=== PATIENT | female | born 2000 | race Caucasian/White ===

== ENCOUNTER → 2020-01-06 17:00 | Outpatient (BNVA) | payer BC, SELFPAY | PROVIDERS: Family Provider Nurse Practitioner Family; Visit Provider Family Medicine | DX: J30.2 Other seasonal allergic rhinitis; J02.9 Acute pharyngitis, unspecified | CPT/HCPCS: 87071; 87880 ==

== ENCOUNTER → 2020-07-12 09:55 | Outpatient (BNVA) | payer BC, SELFPAY | PROVIDERS: Family Provider Nurse Practitioner Family; Visit Provider Nurse Practitioner Family | DX: Z20.828 Contact with and (suspected) exposure to other viral communicable diseases (principal); J06.9 Acute upper respiratory infection, unspecified | CPT/HCPCS: 87071; 87400; 87635; 87880 ==

== ENCOUNTER → 2021-04-04 10:31 | Outpatient (BNVA) | payer OTHER, SELFPAY | PROVIDERS: Family Provider Nurse Practitioner Family; Visit Provider Nurse Practitioner Family | DX: J06.9 Acute upper respiratory infection, unspecified (principal); J30.2 Other seasonal allergic rhinitis; Z20.828 Contact with and (suspected) exposure to other viral communicable diseases; Z20.822 Contact with and (suspected) exposure to COVID-19 | CPT/HCPCS: 87071; 87400; 87635; 87880 ==

== ENCOUNTER 2023-11-19 17:55 | Emergency (ER) | payer SELFPAY ==
[2023-11-19 18:03] VITALS: BP 148/87; PULSE 103; RESP 16; TEMP 36.8; O2SAT 100
--- NOTE | 2023-11-19 18:14 | ED_ITS ---
HPI - Female Genitourinary 2 General: Chief complaint: Urogenital-Female Stated complaint: cramping, pelvic pressure, pt is 7 weeks preg Time Seen by Provider: 11/19/23 18:02 Source: patient Mode of arrival: ambulatory History of Present Illness: 23-year-old female who is roughly 7 to 8 weeks states over the last 2 days she been having some lower abdominal cramping states that cramping has been diffuse in nature and is worse when she urinates denies any fevers denies any vaginal discharge denies any vaginal bleeding. Rates her pain a 2 out of 10 currently. Associated symptoms: Reports abdominal pain; Deny headache(s) or nausea Review of Systems 2 Const: Denies: fever(s), chills, body aches or change in appetite ENMT: Denies: throat pain or dental pain Card: Denies: chest pain Resp: Denies: dyspnea GI: Reports: abdominal pain; Denies: nausea, vomiting or diarrhea Musc: Denies: neck pain or back pain Skin/Breast: Denies: rash Neuro: Denies: headache(s) PFSH ED 2 PFSH: Social History Smoking and tobacco/nicotine status: never used tobacco/nicotine Alcohol intake: never Substance/Drug Use: never Physical Exam 2 Const: COMMON NORMALS: no acute distress, patient oriented x3 and healthy appearing HENMT: COMMON NORMALS: normocephalic and atraumatic HEAD & SCALP: n ormocephalic and atraumatic Eye: COMMON NORMALS: Equal, round and reactive pupils present and EOMs intact bilaterally PUPIL: Yes Equal, round and reactive pupils present Neck/C-Spine: COMMON NORMALS: full ROM Chest: COMMONS NORMALS: normal inspection of the chest Resp: COMMON NORMALS: normal respiratory effort Cardio: COMMON NORMALS: regular rate RATE: regular rate GI: COMMON NORMALS: Normal to inspection, nondistended, normoactive bowel sounds present, Soft to palpation, non-tender and no masses PALPATION: Yes Soft to palpation Extremity: COMMON NORMALS: normal to inspection and full ROM Neuro: COMMON NORMALS: patient oriented x3, moves all extremities and no focal motor deficits Psych: COMMON NORMALS: mental status grossly normal, Normal thought process present and cooperative THOUGHT PROCESS: Normal thought process present Skin: COMMON NORMALS: no rashes or lesions noted and no wounds GENERAL SKIN EXAM: no rashes or lesions noted Course 2 Vital Signs: Vital signs: Vital Signs Temperature 98.2 F 11/19/23 18:03 Pulse Rate 88 11/19/23 19:21 Respiratory Rate 16 11/19/23 18:29 Blood Pressure 126/67 11/19/23 19:21 Pulse Oximetry 100 11/19/23 19:21 Oxygen Delivery Me thod Room Air 11/19/23 19:21 MDM - Female Medical Decision Making Patient presents here with abdominal pain in . I did a bedside ultrasound that did show an IUP heart rate 146 is consistent with dates her other blood work is normal abdominal exam is benign no signs of acute surgical abdomen we will place her on Reglan she is to follow-up with OB return if worsening. Medical Records I reviewed the patient's medical records. Lab Data I reviewed the patient's lab results. 11/19/23 18:11 Laboratory Results WBC 9.32 10^3/uL (3.29-11.43) 11/19/23 18:11 RBC 4.83 10^6/uL (3.85-5.65) 11/19/23 18:11 Hgb 12.90 g/dL (11.27-16.99) 11/19/23 18:11 Hct 39.2 % (36-47) 11/19/23 18:11 MCV 81.2 fl (85-98) L 11/19/23 18:11 MCH 26.7 pg (27-33) L 11/19/23 18:11 MCHC 32.9 g/dL (30-55) 11/19/23 18:11 RDW 13.9 % (12.1-15.1) 11/19/23 18:11 Plt Count 288 10^3/cmm (157-399) 11/19/23 18:11 MPV 10.2 fL (7.4-10.4) 11/19/23 18:11 Neut % (Auto) 66.3 % 11/19/23 18:11 Lymph % (Auto) 23.0 % 11/19/23 18:11 Anderson % (Auto) 6.3 % 11/19/23 18:11 Eos % (Auto) 3.1 % 11/19/23 18:11 Baso % (Auto) 0.9 % 11/19/23 18:11 Neut # (Auto) 6.18 10^3/uL (1.8-7.7) 11/19/23 18:11 Lymph # (Auto) 2.1 10^3/uL (0.8-4.8) 11/19/23 18:11 Anderson # (Auto) 0.6 10^3/uL (0.2-0.9) 11/19/23 18:11 Eos # (Auto) 0.3 10^3/uL (0.0-0.8) 11/19/23 18:11 Baso # (Auto) 0.1 10^3/uL (0.0-0.1) 11/19/23 18:11 Nucleated RBC % (auto) 0 % 11/19/23 18:11 Nucleated RBCs # 0.0 /100WBC 11/19/23 18:11 Ser , Semi-Qnt 14620.00 mIU/mL 11/19/23 18:11 Urine Color Yellow (Yellow) 11/19/23 18:11 Urine Appearance Clear (CLEAR) 11/19/23 18:11 Urine pH 5 (5-7) 11/19/23 18:11 Ur Specific [place] 1.020 (1.005-1.030) 11/19/23 18:11 Urine Protein Neg (Negative) 11/19/23 18:11 Urine Glucose (UA) Norm (Normal) 11/19/23 18:11 Urine Ketones Negative (Negative) 11/19/23 18:11 Urine Blood Neg (Negative) 11/19/23 18:11 Urine Nitrate Negative (Negative) 11/19/23 18:11 Urine Bilirubin Neg (Negative) 11/19/23 18:11 Urine Urobilinogen Norm mg/dL (Negative) 11/19/23 18:11 Ur Leukocyte Esterase Negative (Negative) 11/19/23 18:11 No radiology studies performed this visit Discharge Plan Discharge Patient Disposition: Home Clinical Impression: Abdominal pain in Condition: Stable Prescriptions: New metoclopramide HCl [Reglan] 10 mg tablet 10 mg PO Q6H PRN (Reason: nausea and vomiting) Qty: 20 0RF Discharge Orders: Discharge ED (Routine); Ordered 11/19/23 Ordered By: Korby Olegario Referrals: [place], [facility] M[facility] DISCLOSURE ACT SPECIALIST [Primary Care Provider] - Discharge Diet: Advance as tolerated Discharge Activity: Resume usual activity Patient Instructions: Abdominal Pain (ED), Abdominal Pain in (ED) Coding Level of Care Code ED School Services Officer for Bright Yanes
[2023-11-19] MEDS: sodium chloride 0.9% 1,000 ML 999 ML IV (18:21)
[2023-11-19] MEDS: diphenhydrAMINE 50 mg/mL SDV 1mL IVP (18:22)
[2023-11-19] MEDS: metoclopramide 5 mg/mL SDV 2 mL 10 MG IVP (18:22)
[2023-11-19 18:27] LABS: Basophils # 0.1 10^3/uL (0.0-0.1); Basophils % 0.9 %; Eosinophils # 0.3 10^3/uL (0.0-0.8); Eosinophils % 3.1 %; Hematocrit 39.2 % (36-47); Lymphocytes # 2.1 10^3/uL (0.8-4.8); Mean Corpuscular HGB Conc 32.9 g/dL (30-55); Mean Corpuscular Hemoglobin 26.7 pg (27-33); Mean Corpuscular Volume 81.2 fl (85-98); Mean Platelet Volume 10.2 fL (7.4-10.4); Monocytes # 0.6 10^3/uL (0.2-0.9); Monocytes % 6.3 %; Neutrophils # 6.18 10^3/uL (1.8-7.7); Neutrophils % 66.3 %; Nucleated Red Blood Cells % 0 %; Platelet Count 288 10^3/cmm (157-399); Red Blood Count 4.83 10^6/uL (3.85-5.65); Red Cell Distribution Width 13.9 % (12.1-15.1); White Blood Count 9.32 10^3/uL (3.29-11.43)
[2023-11-19 18:29] VITALS: PULSE 100; RESP 16; O2SAT 98
[2023-11-19 19:21] VITALS: BP 126/67; PULSE 88; O2SAT 100
[2023-11-19 19:28] LABS: Add Urine Microscopic? NO; Charge for UA Resulting for Rev
[2023-11-19 19:36] LABS: Bilirubin Urine Neg (Negative); Blood Urine Neg (Negative); Glucose Urine UA Norm (Normal); Ketones Urine Negative (Negative); Leukocyte Esterase Urine Negative (Negative); Nitrate Urine Negative (Negative); Protein Urine Neg (Negative); Urine Appearance Clear (CLEAR); Urine Color Yellow (Yellow); Urobilinogen Urine Norm (Negative); pH Urine 5 (5-7)
[2023-11-19 19:54] VITALS: BP 122/67; PULSE 81; O2SAT 100
== END 2023-11-19 19:54 | disposition home or self-care (01) ==
PROVIDERS: Emergency Provider Emergency Medicine; PCP Nurse Practitioner Family
DX: O26.891 Other specified pregnancy related conditions, first trimester (principal); R10.30 Lower abdominal pain, unspecified; Z3A.01 Less than 8 weeks gestation of pregnancy
CPT/HCPCS: 81003; 84702; 85025; 96374; 96375; 99284; J1200; J2765; J7030

== ENCOUNTER → 2024-01-08 08:05 | Outpatient (BNVA) | payer MEDICAID, SELFPAY | PROVIDERS: PCP Nurse Practitioner Family; Visit Provider Nurse Practitioner Women's Health | DX: Z34.90 Encounter for supervision of normal pregnancy, unspecified, unspecified trimester (principal) | CPT/HCPCS: 80307; 81000; 84443; 85025; 86592; 86762; 86803; 86850; 86900; 87086; 87340; 87491; 87591; 87806 ==

== ENCOUNTER → 2024-01-09 10:19 | Outpatient (BNVA) | payer MEDICAID, SELFPAY | PROVIDERS: PCP Nurse Practitioner Family; Visit Provider Nurse Practitioner Women's Health | DX: Z34.90 Encounter for supervision of normal pregnancy, unspecified, unspecified trimester (principal) | CPT/HCPCS: 76815 ==

== ENCOUNTER → 2024-01-20 07:40 | Outpatient (BNVA) | payer MEDICAID, SELFPAY | PROVIDERS: PCP Nurse Practitioner Family; Visit Provider Obstetrics & Gynecology | DX: Z34.90 Encounter for supervision of normal pregnancy, unspecified, unspecified trimester (principal); Z01.419 Encounter for gynecological examination (general) (routine) without abnormal findings | CPT/HCPCS: 84315; 87624 ==

== ENCOUNTER 2024-01-25 22:23 | Emergency (ER) | payer MEDICAID, SELFPAY ==
[2024-01-25 22:31] VITALS: BP 148/91; PULSE 93; RESP 17; TEMP 37.1; O2SAT 95; BMI 32.1
[2024-01-25 23:26] VITALS: BP 140/79; PULSE 87; O2SAT 99
[2024-01-25 23:45] VITALS: BP 120/79
[2024-01-25 23:57] LABS: Add Urine Microscopic? YES; Bilirubin Urine Neg (Negative); Blood Urine Neg (Negative); Glucose Urine UA Norm (Normal); Ketones Urine 1+ (Negative); Leukocyte Esterase Urine Negative (Negative); Nitrate Urine Negative (Negative); Protein Urine Neg (Negative); Urine Appearance Cloudy (CLEAR); Urine Color Yellow (Yellow); Urobilinogen Urine 1 mg/dL (Negative); pH Urine 6.5 (5-7)
[2024-01-25 23:58] LABS: Amorphous Sediment Urine 1+ /hpf; Bacteria Urine 2+ /hpf; Mucus Urine 2+ /hpf; RBC Urine 0-4 /hpf (0-2); Squamous Epithelial Cell Urine 0-4 /hpf (0-5); WBC Urine 0-4 /hpf (0-5)
[2024-01-26] MEDS: clindamycin 150 mg Capsule 900 MG PO (00:44)
[2024-01-26 00:46] VITALS: BP 127/75; PULSE 88; O2SAT 97
[2024-01-26 00:47] VITALS: BP 127/75; PULSE 88; O2SAT 97
--- NOTE | 2024-01-26 01:05 | ED_ITS ---
HPI - Dizziness General: Chief Complaint: Dizziness Stated Complaint: High bp Time Seen by Provider: 01/25/24 23:34 History of Present Illness: HPI Narrative: 23-year-old female who is at 18 weeks. She presents with dizziness, with some intermittent facial tingling and tingling to bilateral hands since . This is her third day of symptoms. She notes that her symptoms are much improved today compared to yesterday and the day before. She has had a headache as well which is now resolved. On Saturday she started Flagyl for bacterial vaginosis, which she believes is the cause. Her blood pressure was elevated evidently in obstetrics, which was concerning to them. She was sent here for evaluation regarding this. Associated symptoms: Reports headache(s); Denies chest pain, chills, nausea, palpitations or vomiting Associated neuro symptoms: Deny confusion Review of Systems Const: Denies: fever(s), chills or body aches Eyes: Denies: change in vision Card: Denies: chest pain or palpitations Resp: Denies: dyspnea, productive cough, non-productive cough or wheezing GI: Denies: abdominal pain, nausea, vomiting, diarrhea or hematochezia : Denies: difficulty voiding Skin/Breast: Reports: rash Neuro: Reports: headache(s), sensory changes and dizziness; Denies: weakness in extremities or confusion PFS ED PFSH: Social History Smoking and tobacco/nicotine status: never used tobacco/nicotine Alcohol intake: never Substance/Drug Use: never Physical Exam Const: COMMON NORMALS: no acute distress GENERAL APPEARANCE: cooperative; not ill appearing and not frail appearing HENMT: COMMON NORMALS: normocephalic, atraumatic and Normal external nose present HEAD & SCALP: normocephalic and atraumatic FACE & SINUS: normal facial exam and face symmetric NOSE: Normal external nose present Eye: COMMON NORMALS: Equal, round and reactive pupils present and EOMs intact bilaterally PUPIL: Yes Equal, round and reactive pupils present Neck/C-Spine: GENERAL: Yes trachea midline Chest: CHEST: Yes Symmetrical chest wall rise Resp: COMMON NORMALS: normal respiratory effort, No retractions, No use of accessory muscles and clear to auscultation bilaterally AUSCULTATION: clear to auscultation bilaterally Cardio: COMMON NORMALS: regular rate and regular rhythm RATE: regular rate RHYTHM: regular rhythm GI: COMMON NORMALS: Normal to inspection, nondistended, normoactive bowel sounds present Extremity: COMMON NORMALS: no pedal edema Neuro: ANDREA COMA SCALE: document GCS findings Russell coma scale eye opening: Spontaneous Andrea coma scale verbal response: Orientated Andrea coma scale motor response: Obey commands Russell coma scale total score: 15 SENSORY EXAM: Yes extremities (intact) Psych: COMMON NORMALS: speech normal SPEECH: Yes normal speech Skin: COMMON NORMALS: no rashes or lesions noted GENERAL SKIN EXAM: no rashes or lesions noted Course Vital Signs: Vital signs: Vital Signs Temperature 98.7 F 01/25/24 22:31 Pulse Rate 88 01/26/24 00:47 Respiratory Rate 17 01/25/24 22:31 Blood Pressure 127/75 01/26/24 00:47 Pulse Oximetry 97 01/26/24 00:47 Oxygen Delivery Me thod Room Air 01/25/24 22:31 [facility] - Dizziness Medical Decision Making This patient's neurological exam is normal. Her blood pressure is normalized. Current blood pressure is 127/75. Her headache is gone. She is not experiencing paresthesias. She has no protein in her urine. It does show continued bacteriuria suggestive of continued bacterial vaginosis. Metronidazole does have a common side effect of dizziness which is likely her cause. She will discontinue this, and continue clindamycin for treatment. She will monitor her blood pressures closely to ensure they are staying below 140/90. She knows to return for any return of her symptoms. Lab Data Laboratory Results Urine Color Yellow (Yellow) 01/25/24 23:38 Urine Appearance Cloudy (CLEAR) A 01/25/24 23:38 Urine pH 6.5 (5-7) 01/25/24 23:38 Ur Specific [place] 1.020 (1.005-1.030) 01/25/24 23:38 Urine Protein Neg (Negative) 01/25/24 23:38 Urine Glucose (UA) Norm (Normal) 01/25/24 23:38 Urine Ketones 1+ (Negative) H 01/25/24 23:38 Urine Blood Neg (Negative) 01/25/24 23:38 Urine Nitrate Negative (Negative) 01/25/24 23:38 Urine Bilirubin Neg (Negative) 01/25/24 23:38 Urine Urobilinogen 1 mg/dL (Negative) H 01/25/24 23:38 Ur Leukocyte Esterase Negative (Negative) 01/25/24 23:38 Urine RBC 0-4 /hpf (0-2) H 01/25/24 23:38 Urine WBC 0-4 /hpf (0-5) H 01/25/24 23:38 Ur Squamous Epith Cells 0-4 /hpf (0-5) H 01/25/24 23:38 Amorphous Sediment 1+ /hpf 01/25/24 23:38 Urine Bacteria 2+ /hpf (NONE) H 01/25/24 23:38 Urine Mucus 2+ /hpf 01/25/24 23:38 No radiology studies performed this visit Discharge Plan Discharge Patient Disposition: Home Clinical Impression: Medication side effects, Hypertension affecting Condition: Stable Prescriptions: New clindamycin HCl 300 mg capsule 300 mg PO TID 7 Days Qty: 21 0RF Discontinued metronidazole 0.75 % (37.5mg/5 gram) gel 1 appful vaginal DAILY 5 Days Qty: 70 1RF No Action Classic 28 mg iron- 800 mcg tablet PO Reglan 10 mg tablet 10 mg PO Q6H PRN (Reason: nausea and vomiting) Qty: 20 0RF Discharge Orders: Discharge ED (Routine); Ordered 01/26/24 Ordered By: Gordy Bowman Referrals: Brenda Mcintosh DO [Primary Care Provider] - 1-3 days Patient Instructions: Opioid Safety, Pain Management Activity Restrictions/Additional Instructions: Monitor your blood pressures closely at home, twice daily. Report numbers, especially numbers greater than 140/90 to your doctor. Discontinue metronidazole. It is likely the cause of your dizziness. Start the antibiotic above. Return for any worsening dizziness, headache, etc. despite the above. See your doctor next week. Coding Level of Care Code ED Rough Planer Tender for Bright Yanes
== END 2024-01-26 00:49 | disposition home or self-care (01) ==
PROVIDERS: Emergency Provider Emergency Medicine; PCP Family Medicine
DX: O16.2 Unspecified maternal hypertension, second trimester (principal); Z3A.18 18 weeks gestation of pregnancy; O9A.212 Injury, poisoning and certain other consequences of external causes complicating pregnancy, second trimester; R42 Dizziness and giddiness; T37.8X5A Adverse effect of other specified systemic anti-infectives and antiparasitics, initial encounter
CPT/HCPCS: 81001; 99283

== ENCOUNTER → 2024-02-17 14:14 | Outpatient (BNVA) | payer MEDICAID, SELFPAY | PROVIDERS: PCP Family Medicine; Visit Provider Obstetrics & Gynecology | DX: Z34.92 Encounter for supervision of normal pregnancy, unspecified, second trimester (principal) | CPT/HCPCS: 76805 ==

== ENCOUNTER → 2024-04-15 07:46 | Outpatient (BNVA) | payer MEDICAID, SELFPAY | PROVIDERS: Visit Provider Obstetrics & Gynecology | DX: Z34.90 Encounter for supervision of normal pregnancy, unspecified, unspecified trimester (principal) | CPT/HCPCS: 82950; 84315 ==

== ENCOUNTER → 2024-04-29 08:14 | Outpatient (BNVA) | payer MEDICAID, SELFPAY | PROVIDERS: Visit Provider Obstetrics & Gynecology | DX: Z53.9 Procedure and treatment not carried out, unspecified reason (principal) | CPT/HCPCS: 84315 ==

== ENCOUNTER → 2024-05-18 13:23 | Outpatient (BNVA) | payer MEDICAID, SELFPAY | PROVIDERS: Visit Provider Obstetrics & Gynecology | DX: Z36.4 Encounter for antenatal screening for fetal growth retardation (principal); Z3A.34 34 weeks gestation of pregnancy | CPT/HCPCS: 76816 ==

== ENCOUNTER → 2024-06-02 13:29 | Outpatient (BNVA) | payer MEDICAID, SELFPAY | PROVIDERS: Visit Provider Nurse Practitioner Women's Health | DX: Z34.90 Encounter for supervision of normal pregnancy, unspecified, unspecified trimester (principal) | CPT/HCPCS: 84315; 87081 ==

== ENCOUNTER 2024-07-03 20:16 | Inpatient (IN) | payer MEDICAID, SELFPAY ==
[2024-07-03] VITALS (12 sets, daily range): BP systolic 106–145; BP diastolic 58–88; PULSE 83–104; TEMP 36.7; BMI 34.2
[2024-07-03 21:57] LABS: Basophils # 0.1 10^3/uL (0.0-0.1); Basophils % 0.7 %; Eosinophils # 0.2 10^3/uL (0.0-0.8); Eosinophils % 2.1 %; Hematocrit 31.1 % (36-47); Lymphocytes # 1.8 10^3/uL (0.8-4.8); Mean Corpuscular HGB Conc 31.5 g/dL (30-55); Mean Corpuscular Hemoglobin 25.3 pg (27-33); Mean Corpuscular Volume 80.4 fl (85-98); Mean Platelet Volume 11.3 fL (7.4-10.4); Monocytes # 0.6 10^3/uL (0.2-0.9); Monocytes % 6.6 %; Neutrophils # 6.28 10^3/uL (1.8-7.7); Nucleated Red Blood Cells % 0 %; Platelet Count 248 10^3/cmm (157-399); Red Blood Count 3.87 10^6/uL (3.85-5.65); Red Cell Distribution Width 13.3 % (12.1-15.1); White Blood Count 8.96 10^3/uL (3.29-11.43)
[2024-07-03] MEDS: lactated ringers 1,000 ML 999 ML IV (22:10)
[2024-07-03] MEDS: dextrose 5%-lactated ringers 1,000 ML 125 ML IV (22:57)
[2024-07-03] MEDS: ampicillin 2,000 MG in sodium chloride 0.9% (plus) 50 ML 100 MG IV (22:57)
[2024-07-04] VITALS (58 sets, daily range): BP systolic 98–159; BP diastolic 54–95; PULSE 65–116; RESP 16–20; TEMP 36.5–37.1; O2SAT 95–96
[2024-07-04] MEDS: oxytocin 30 UNIT/500 ML BAG IV (00:10)
[2024-07-04] MEDS: ampicillin 1,000 MG in sodium chloride 0.9% (plus) 50 ML 100 MG IV ×3 (02:50→10:43)
[2024-07-04] MEDS: dextrose 5%-lactated ringers 1,000 ML 125 ML IV ×2 (08:53→13:16)
--- NOTE | 2024-07-04 08:57 | P.HP_ITS ---
Providers/Chief Complaint 2 Admitting Physician: Jenae Avila DO Primary AIRLINE COUNTER AGENT: Dr. Cowan Chief Complaint: Induction of labor HPI AIRLINE COUNTER AGENT History of Present Illness Minna Zuleta is a 23 year old female G3, P2 at 40.6 weeks gestation admitted to labor and delivery for elective induction of labor. JAYNE 06/27/2024. Patient admits to good movement and no contractions, leakage of fluid or vaginal bleeding. Patient denies complications through history with this as well as her 2 previous pregnancies. EFM?reassuring Cervix 3 cm / 30%/-3 vertex presentation. Present Details : 3 Para: 2 Labs Rubella: Immune RPR: Negative GBS: Positive Review of Systems 2 Const: Denies: fever(s), change in appetite or fatigue Eyes: Denies: change in vision, blurry vision, blind spots, floaters or seeing flashes Card: Denies: palpitations, irregular heart rhythm, edema, lightheadedness, syncope or pre-syncope Resp: Denies: dyspnea or pain on inspiration GI: Denies: abdominal pain, nausea, vomiting, heartburn or GI cramping : Reports: other (contractions); Denies: difficulty voiding, dysuria, genital pruritis, vaginal odor, vaginal bleeding or vaginal discharge Musc: Denies: back pain, limited range of motion or muscle cramps Skin/Breast: Denies: rash, pruritus, breast tenderness or nipple discharge Neuro: Denies: headache(s) or numbness in extremities Psych: Denies: anxiety, depression, mood swings or panic attacks Endo: Denies: polyuria, tired all the time or hot flashes Vic/Lymph: Denies: easy bruising or petechiae Medications/Allergies Home Medications Medication Instructions Recorded Confirmed Last Taken Type vits no.126-ferrous fum tab PO 01/08/24 07/01/24 Unknown History 28 mg iron-folic acid 800 mcg tablet (Classic ) Allergies Allergy/AdvReac Type Severity Reaction Status Date / Time No Known Allergies Allergy Verified 07/01/24 11:58 PFSH AIRLINE COUNTER AGENT 2 PFSH: Family History Grandfather Diabetes Heart disease Hyperlipidemia Hypertension Denies family history of Colon cancer Ovarian cancer Prostate cancer Breast cancer Uterine cancer Thyroid disease Social History Smoking and tobacco/nicotine status: never used tobacco/nicotine Other Female Reproductive History: Hx Age of Menarche: 11 Duration of menses: 6-7 days Date of Last Menstrual Period: 09/21/23 Cycle Length: 30d Menstrual flow: normal/abnormal: normal Sexual History: Are you sexually active?: Yes How old were you when you first had sex?: 14 Less than 5 How long have you been with your current partner?: 8yrs Contraception: Contraception History Comment: History of Mirena and Depo-Provera shots History History History 2 3 Term 2 0 Miscarriages/Ectopic 0 Living Children 2 Care JAYNE Calculator 2 Estimated Delivery Date Method Current WG Current Estimate 06/27/24 LMP (Certain) 41w 0d Other Estimates 07/04/24 Ultrasound #1 40w 0d Specific Issues/Plans * * NAUSEA AND VOMITING IN : Taking reglan as needed for nausea * TUBAL LIGATION CONSENT SIGNED 06/02/24 * GROUP B STREP POSITIVE Vitals/I&O/Wt Last Vital Signs Temp 97.7 F 07/04/24 06:45 Pulse 80 07/04/24 08:42 BP 128/76 07/04/24 08:42 O2 Del Method Room Air 07/03/24 20:10 07/03/24 07/04/24 07/04/24 22:59 06:59 14:59 Intake Total 616.05 / 616.05 1083.333 / 1699.383 55.5 / 55.5 Balance 616.05 / 616.05 1083.333 / 1699.383 55.5 / 55.5 Weight last 48 hrs Weight 93.44 kg Physical Exam 2 Const: COMMON NORMALS: no acute distress, patient oriented x3, no limitations, healthy appearing, alert and well nourished Resp: COMMON NORMALS: clear to auscultation bilaterally Cardio: COMMON NORMALS: regular rate, regular rhythm and No murmurs present (Cardio) Back/Pelvis: OTHER: Abdomen?soft, gravid nontender to palpation Extremity: COMMON NORMALS: normal to inspection, no clubbing, cyanosis or edema and no calf tenderness Neuro: COMMON NORMALS: patient oriented x3, CN's II-XII intact bilaterally, moves all extremities and deep tendon reflexes 2+ bilaterally Data 07/03/24 20:10 Results Labs OB ([facility]): 2 Obstetrics US 05/18/24 Blood Type B Positive 07/03/24 Antibody Screen Negative 07/03/24 Hct 31.1 % (36-47) L 07/03/24 Hgb 9.80 g/dL (11.27-16.99) L 07/03/24 Rho(D) Type Rh positive 07/03/24 Plt Count 248 10^3/cmm (157-399) 07/03/24 Hep Bs Antigen Non-reactive (Nonreactive) 01/08/24 Hepatitis C Antibody Non-reactive (Nonreactive) 01/08/24 Rubella IgG Antibody 309.7 IU/mL (0.0-10.0) H 01/08/24 RPR Nonreactive (Nonreactive) 01/08/24 HIV 1&2 Ab & HIV 1 Ag Non-reactive (Non-Reactiv) 01/08/24 TSH 0.88 uIU/mL (0.27-4.20) 01/08/24 C.trachomatis RNA (TMA) Not detected (NOT DETECTED) N.gonorrhoeae RNA (TMA) Not detected (NOT DETECTED) T. vaginalis Amp RNA Not detected (NOT DETECTED) 01/08/24 Chlamydia/GC Comment See note 01/08/24 Cystic Fibrosis Screen Negative 01/08/24 Glucose 1 Hr 50 gm 127 mg/dL (85-140) 04/15/24 Ser , Semi-Qnt 36338.00 mIU/mL 11/19/23 Urine Opiates Screen Negative ng/mL (Negative) 01/08/24 Ur Barbiturates Screen Negative ng/mL (Negative) 01/08/24 Ur Phencyclidine Scrn Negative ng/mL (Negative) 01/08/24 Ur Amphetamines Screen Negative ng/mL (Negative) 01/08/24 U Benzodiazepines Scrn Negative ng/mL (Negative) 01/08/24 Urine Cocaine Screen Negative ng/mL (Negative) 01/08/24 U Marijuana (THC) Screen Negative ng/mL (Negative) 01/08/24 Micro Urine Specimen 01/08/24 Pap Smear Interpret See note 01/20/24 A&P Assessment and plan (1) 40 weeks gestation of : Admit to labor and delivery for elective induction of labor. (2) Positive GBS test: (3) Group B streptococcus urinary tract infection affecting : (4) Encounter for consultation for female sterilization: Attestations 2 Medical Necessity Statement*: Patient was admitted to labor and delivery for elective induction of labor management Coding Level of Care Code Acute Code for Chg Fwd Diagnoses 40 weeks gestation of Z3A.40 Positive GBS test B95.1 Group B streptococcus urinary tract infection affecting O23.40; B95.1 Encounter for consultation for female sterilization Z30.09
--- NOTE | 2024-07-04 09:20 | PM.OBGYPN ---
RADIO INTERFERENCE INVESTIGATOR Subjective Subjective: Interval history: 23-year-old G3, P2 at 41 weeks gestation seen this a.m. after admission last night for induction of labor. Low-dose Pitocin was started last night, contractions have progressed to every 4 to 6 minutes. EFM?category 1 with episodes of decreased variability. Cervix?4 to 5 cm / 80%/-2 vertex presentation. AROM?clear fluid noted. Pain management reviewed with patient, questions regarding IV pain medication versus epidurals were answered. Patient unsure at this time of which she desires to use for pain. Labor: Station: -2 Amniotic Membrane Status: Ruptured Monitor Mode: External Contraction Pattern: Regular Vitals/I&O/Wt Last Vital Signs Temp 98.4 F 07/04/24 08:45 Pulse 87 07/04/24 09:12 Resp 16 07/04/24 08:45 BP 120/78 07/04/24 09:12 O2 Del Method Room Air 07/03/24 20:10 07/03/24 07/04/24 07/04/24 22:59 06:59 14:59 Intake Total 616.05 / 616.05 1083.333 / 1699.383 55.5 / 55.5 Balance 616.05 / 616.05 1083.333 / 1699.383 55.5 / 55.5 Weight last 48 hrs Weight 93.44 kg Data 07/03/24 20:10 A&P Assessment and plan (1) 40 weeks gestation of : 1.. Patient receiving ampicillin for positive GBS status 2.. AROM with clear fluid noted. (2) Positive GBS test: (3) Group B streptococcus urinary tract infection affecting : (4) Encounter for consultation for female sterilization: Attestations Medical Necessity Statement*: Induction of labor management Coding Level of Care Code Acute Code for Chg Fwd Diagnoses 40 weeks gestation of Z3A.40 Positive GBS test B95.1 Group B streptococcus urinary tract infection affecting O23.40; B95.1 Encounter for consultation for female sterilization Z30.09
[2024-07-04] MEDS: fentaNYL 50 mcg/mL INJ 2mL IVP (11:36)
[2024-07-04] MEDS: ROPivacaine syringe 100 MG/50 ML SYRINGE 13 MG EPIDURAL (11:59)
[2024-07-04] MEDS: lactated ringers 1,000 ML 999 ML IV (11:59)
--- NOTE | 2024-07-04 12:25 | P.ANESASSM_ITS ---
Pre-Anesthetic Assessment Height/Weight: Height 1.65 m Weight 93.44 kg Temp Pulse Resp BP O2 Del Method 97.7 F 92 20 H 126/65 Room Air 07/04/24 10:51 07/04/24 12:11 07/04/24 11:36 07/04/24 12:11 07/03/24 20:10 Preop Diagnosis: labor pains epidural Was Beta Ke taken within 24 hours: N/A Was Clonidine taken within 24 hours: N/A Exam alert, oriented x 3, clear to auscultation bilaterally and regular rate & rhythm Airway Submandibular: within normal limits Cervical ROM: within normal limits Mallampati: Class II Dentition: full Pulmonary None reported CV/HEM None reported None reported Hepatic None reported GI Gastroesophageal Reflux Disease Metabolic None reported Musc/skel None reported Neuropsych None reported Anesthetic Plan ASA status: 2 Risk of > 500 ml blood loss (7ml/kg in children): No Medications/Allergies Home Medications Medication Instructions Recorded Confirmed Last Taken Type vits no.126-ferrous fum tab PO 01/08/24 07/01/24 Unknown History 28 mg iron-folic acid 800 mcg tablet (Classic ) Allergies Allergy/AdvReac Type Severity Reaction Status Date / Time No Known Allergies Allergy Verified 07/01/24 11:58 Current Medications Generic Name Dose Route Start Last Admin Trade Name Lay PRN Reason Stop Dose Admin Fentanyl 25 - 100 mcg 07/04/24 11:24 07/04/24 11:36 Fentanyl 50 Mcg/Ml Inj 2ml IVP 25 mcg Q1H PRN Administration SEVERE PAIN Lactated Ringer's 1,000 mls @ 999 mls/hr 07/03/24 21:42 07/03/24 22:47 Lactated Ringers IV 0 mls/hr .Q1H1M PRN Infusion BLEEDING Dextrose/Lactated Ringer's 1,000 mls @ 125 mls/hr 07/03/24 21:45 07/04/24 08:53 Dextrose 5%-Lactated Ringers IV 125 mls/hr .Q8H RADHA Administration Ampicillin Sodium 1,000 mg/ 50 mls @ 100 mls/hr 07/04/24 02:30 07/04/24 10:43 Sodium Chloride IV 100 mls/hr Q4H RADHA Administration Protocol Oxytocin 30 unit in 500 mls @ 1 mls/hr 07/03/24 23:42 07/04/24 10:30 Pitocin IV 16 milliunit/min .Q24H RADHA 16 mls/hr Titration Protocol 1 MILLIUNIT/MIN Lactated Ringer's 1,000 mls @ 999 mls/hr 07/04/24 11:38 07/04/24 11:59 Lactated Ringers IV 999 mls/hr .Q1H1M PRN Administration See label comments Ropivacaine 100 mg in 50 mls @ 13 mls/hr 07/04/24 11:45 07/04/24 11:59 Naropin Syringe EPIDURAL 13 mls/hr .Q3H51M RADHA Administration PFSH Anesthesia Family History Grandfather Diabetes Heart disease Hyperlipidemia Hypertension Denies family history of Colon cancer Ovarian cancer Prostate cancer Breast cancer Uterine cancer Thyroid disease Social History Smoking and tobacco/nicotine status: never used tobacco/nicotine Female Reproductive History : 3 Data Anesthesia 07/03/24 20:10 Short CBC 07/03/24 Range/Units 20:10 WBC 8.96 (3.29-11.43) 10^3/uL Hgb 9.80 L (11.27-16.99) g/dL Hct 31.1 L (36-47) % MCV 80.4 L (85-98) fl Plt Count 248 (157-399) 10^3/cmm Neut % (Auto) 70.0 % Neut # (Auto) 6.28 (1.8-7.7) 10^3/uL Blood Bank 07/03/24 20:10 Blood Type B Positive Rho(D) Type Rh positive Antibody Screen Negative Cardiac Studies: 2 No Data to Display
--- NOTE | 2024-07-04 12:49 | ANES.PROC ---
Anesthesia Procedures Procedure/Date: 07/04/24 epidural Procedure Narrative: epidural complete, bolus given, epidural pump initiated with PERSHING MISSILE CREWMEMBER education given, vitals taken during procedure and satisfactory throughout, patient admits to decrease pain, report of procedure to OB RN Epidural: Time Out Performed: Yes Consents Signed: Procedure Consent Consent: requested by attending/covering physician, from patient, risks and benefits reviewed and patient agrees to proceed Lumbar Level: L3-L4 Epidural position: sitting Epidural procedure: sterile prep of area, 1% lidocaine to numb the area (3 mL), 18 g needle, negative for paresthesia passed, neg for paresthesia, test dose given, 1.5% xylocaine 1:200k epi (5 mL), 0.2% Ropivacaine bolus ml (5 mL), placed PCEA, no systemic response, sterile dressing applied, L.U.D. no apparent complications and 0.2% Ropiavacaine @ mls/hr (13 mL/hr)
[2024-07-04] MEDS: ondansetron 2 mg/ML SDV 2 mL 4 MG IVP (13:00)
[2024-07-04] MEDS: metoclopramide 5 mg/mL SDV 2 mL 10 MG IV (13:53)
--- NOTE | 2024-07-04 14:34 | PM.DELIVERY ---
Delivery Note: Date of delivery: July 04, 2024 Pre-delivery diagnoses: 40.6-week IUP GBS positive Desires elective sterilization Post-delivery diagnoses: Viable baby girl with nuchal cord x 1 delivery complicated by shoulder dystocia Procedure: viable baby girl 9 pounds 2 ounces Op report anesthesia: Epidural Delivering Physician: Jenae Avila DO Estimated blood loss (mL): 300 Delivery: 23-year-old female G3, P3 delivered via of viable female baby complicated by shoulder dystocia. Delivery was assisted with flexing of the maternal thighs by nursing staff and suprapubic pressure in conjunction with rotation of the posterior shoulder. Posterior arm was flexed and extended out of the vagina with more rotation to assist in delivery of the anterior shoulder with the remainder the baby's body to follow. The oral and nasal pathways were bulb suctioned. The umbilical cord was clamped and cut. The baby was then taken over to the warmer for nursing evaluation, and care. Blood was drawn for pH and cord blood. The uterus was massaged and Pitocin IV solution started in a bolus manner. The placenta presented in a [place] presentation with trailing membranes. Uterus was continued to be massaged vaginal vault explored with no lacerations noted. Moderate gush of blood was noted from the vagina the uterus was massaged and 800 mg of Cytotec was placed rectally. The uterus firmed well with minimal bleeding. Mother and infant are both in stable and satisfactory condition. EFW?9 pounds 2 ounces pH?pending complications?shoulder dystocia x 2 to resolve Post-Delivery Status: Stable Baby girl is evaluated, spontaneously moves both shoulders and hands as well as her head. No obvious trauma noted. Clavicles palpated no obvious fracture noted. History History History 3 Term 3 0 Miscarriages/Ectopic 0 Living Children 2 A&P Assessment and plan (1) Spontaneous vaginal delivery: (2) Shoulder dystocia, delivered: (3) 40 weeks gestation of : (4) Encounter for consultation for female sterilization: (5) Positive GBS test: Plan Began care Will contact surgery staff regarding tubal sterilization. Coding Level of Care Code Acute Code for Chg Fwd Diagnoses Spontaneous vaginal delivery O80 Shoulder dystocia, delivered O66.0 40 weeks gestation of Z3A.40 Encounter for consultation for female sterilization Z30.09 Positive GBS test B95.1
[2024-07-04] MEDS: miSOPROStol 200 mcg Tablet 800 MCG PR (14:37)
--- NOTE | 2024-07-04 18:26 | PC.NURSE ---
PT UP TO BATHROOM THEN AMBULATED TO OB 9. DID WELL, SUPPLIES GIVEN FOR SHOWER. TOLD HER SHE COULD BE UP ON HER OWN, BUT TO LET US KNOW IF SHE NEEDS ANYTHING AT ALL.
[2024-07-04] MEDS: ibuprofen 800 mg tablet PO (20:30)
[2024-07-05 00:29] VITALS: BP 126/74; PULSE 83; RESP 18; TEMP 36.6; O2SAT 97
[2024-07-05 02:15] VITALS: BP 114/69; PULSE 77; RESP 18; TEMP 36.6; O2SAT 97
[2024-07-05 03:15] LABS: Hematocrit 29.5 % (36-47); Mean Corpuscular HGB Conc 31.5 g/dL (30-55); Mean Corpuscular Hemoglobin 24.9 pg (27-33); Mean Corpuscular Volume 78.9 fl (85-98); Mean Platelet Volume 11.7 fL (7.4-10.4); Platelet Count 238 10^3/cmm (157-399); Red Blood Count 3.74 10^6/uL (3.85-5.65); Red Cell Distribution Width 13.4 % (12.1-15.1); White Blood Count 11.34 10^3/uL (3.29-11.43)
[2024-07-05 06:03] VITALS: BP 103/60; PULSE 80; RESP 16; O2SAT 97
--- NOTE | 2024-07-05 08:00 | ANE.PACU2 ---
Inpatient post-anesthesia follow up: Airway intact: Yes Vital signs: Temperature 98 F Pulse Rate 100 Respiratory Rate 16 Blood Pressure 120/80 Pulse Oximetry 98 Oxygen Delivery Me thod Room Air Oxygen Flow Rate Fraction of Inspir ed Oxygen Hydration adequate: Yes Nausea and vomiting: No Pain level: 1 Mental status: Baseline Epidural Start/End: Epidural Start Date: 07/04/24 Epidural Start Time: 12:30 Epidural End Date: 07/04/24 Epidural End Time: 14:34
[2024-07-05] MEDS: ibuprofen 800 mg tablet PO (08:46)
[2024-07-05] MEDS: PRENATAL VIT NO.130/IRON/FOLIC 1 EACH TABLET PO (08:47)
[2024-07-05] MEDS: docusate sodium 100 mg Capsule PO (08:47)
[2024-07-05 08:49] VITALS: BP 110/71; PULSE 80; RESP 16; TEMP 36.6; O2SAT 97
--- NOTE | 2024-07-05 13:40 | P.PN_ITS ---
[employer] Subjective 2 Subjective: Interval history: 23-year-old female G3, P3 s/p of a v iable female 9 pounds 2 ounces complicated by shoulder dystocia. stay has been uneventful patient is tolerating regular diet, voiding and ambulating without difficulty. She denies headaches, blurred vision, shortness of breath, chest pain. Baby is breast-feeding and moving all extremities, showing no signs of shoulder or arm problems from dystocia. Patient had requested tubal sterilization but changed her mind after delivery. VSS, afebrile Discharge expectations reviewed to include no heavy lifting pushing or pulling no sex douching or tampons x 6 weeks. Patient is to continue her vitamins and iron as long as she breast-feeds. Labor: Station: +1 Amniotic Membrane Status: Ruptured Monitor Mode: External Contraction Pattern: Regular Vitals/I&O/Wt Last Vital Signs Temp 97.9 F 07/05/24 08:49 Pulse 80 07/05/24 08:49 Resp 16 07/05/24 08:49 BP 110/71 07/05/24 08:49 Pulse Ox 97 07/05/24 08:49 O2 Del Method Room Air 07/05/24 08:49 07/04/24 07/05/24 07/05/24 22:59 06:59 14:59 Intake Total 600 / 1276.417 Balance 600 / 1276.417 Weight last 48 hrs Weight 93.44 kg Physical Exam 2 Back/Pelvis: OTHER: Abdomen?soft, fundus firm, 4 cm below umbilicus. Lochia light. Extremity: COMMON NORMALS: no clubbing, cyanosis or edema and no calf tenderness Urinary Catheter Management: Parker: Cath Placed During This Visit: yes, but has since been removed by the nurse Reason for Continuing Indwelling Catheter: Other Urinary Catheter Date of Insertion: 07/04/24 Urinary Catheter Time of Insertion: 12:55 Date Urinary Catheter Removed: 07/04/24 Time Urinary Catheter Discontinued: 14:05 Data 07/05/24 02:20 A&P Assessment and plan (1) Spontaneous vaginal delivery: A. Asymptomatic anemia (2) Shoulder dystocia, delivered: (3) 40 weeks gestation of : (4) Encounter for consultation for female sterilization: (5) Positive GBS test: Plan Will discharge patient to home Patient advised to call clinic in the next few days to schedule a 4-week visit. Patient encouraged to continue vitamins and iron daily Attestations 2 Medical Necessity Statement*: Patient was admitted to labor and delivery for induction of labor management. Coding Level of Care Code Acute Code for Chg Fwd Diagnoses Spontaneous vaginal delivery O80 Shoulder dystocia, delivered O66.0 40 weeks gestation of Z3A.40 Encounter for consultation for female sterilization Z30.09 Positive GBS test B95.1
--- NOTE | 2024-07-05 13:49 | PM.OBGYDC ---
Discharge Providers PHYSICAL THERAPIST CLINIC DIRECTOR Date of Admission: 07/03/24 20:16 Date of Discharge: 07/05/24 Attending Provider at Admission: Jenae Avila DO Attending Provider at Discharge: Jenae Avila DO Diagnoses at Discharge Discharge Diagnosis (1) Spontaneous vaginal delivery: Details from hospital stay: 23-year-old female G3, P3 admitted to labor and delivery for induction of labor. Patient delivered on 07/04/2024 via of viable female 9 pounds 2 ounces over intact perineum. Delivery was complicated by shoulder dystocia which was resolved with several maneuvers to deliver the baby girl without extremity injuries. Patient is ambulating without headaches or dizziness, tolerating regular diet and voiding. She denies heavy vaginal bleeding. Patient is breast-feeding. Discussion of discharge orders as well as expectations have been reviewed to include no heavy lifting, pushing or pulling. Patient is to avoid sexual intercourse x 6 weeks. Patient is encouraged to call the clinic over the next several days to schedule a visit. At the time of that visit if patient desires to proceed with elective sterilization it can be discussed at that time. Yesterday after delivery patient declined procedur, stating she was not sure at this time. Status: Acute (2) Shoulder dystocia, delivered: Details from hospital stay: See above Status: Acute (3) 40 weeks gestation of : Status: Acute (4) Encounter for consultation for female sterilization: Status: Acute (5) Positive GBS test: Status: Acute Reason for Visit Reason for Visit: Induction of labor Information Peripartum Data: Infant Delivery Method: Vaginal Laceration description: None Episiotomy description: None complications: none Physical Exam Back/Pelvis: OTHER: Abdomen?soft, fundus firm below umbilicus. Lochia light. Extremity: COMMON NORMALS: no clubbing, cyanosis or edema and no calf tenderness Urinary Catheter Management: Parker: Cath Placed During This Visit: yes, but has since been removed by the nurse Reason for Continuing Indwelling Catheter: Other Urinary Catheter Date of Insertion: 07/04/24 Urinary Catheter Time of Insertion: 12:55 Date Urinary Catheter Removed: 07/04/24 Time Urinary Catheter Discontinued: 14:05 History History History 3 Term 3 0 Miscarriages/Ectopic 0 Living Children 2 Discharge Data Studies Completed and Pending Laboratory Results WBC 11.34 10^3/uL (3.29-11.43) 07/05/24 02:20 RBC 3.74 10^6/uL (3.85-5.65) L 07/05/24 02:20 Hgb 9.30 g/dL (11.27-16.99) L 07/05/24 02:20 Hct 29.5 % (36-47) L 07/05/24 02:20 MCV 78.9 fl (85-98) L 07/05/24 02:20 MCH 24.9 pg (27-33) L 07/05/24 02:20 MCHC 31.5 g/dL (30-55) 07/05/24 02:20 RDW 13.4 % (12.1-15.1) 07/05/24 02:20 Plt Count 238 10^3/cmm (157-399) 07/05/24 02:20 MPV 11.7 fL (7.4-10.4) H 07/05/24 02:20 Neut % (Auto) 70.0 % 07/03/24 20:10 Lymph % (Auto) 20.0 % 07/03/24 20:10 [place] % (Auto) 6.6 % 07/03/24 20:10 Eos % (Auto) 2.1 % 07/03/24 20:10 Baso % (Auto) 0.7 % 07/03/24 20:10 Neut # (Auto) 6.28 10^3/uL (1.8-7.7) 07/03/24 20:10 Lymph # (Auto) 1.8 10^3/uL (0.8-4.8) 07/03/24 20:10 [place] # (Auto) 0.6 10^3/uL (0.2-0.9) 07/03/24 20:10 Eos # (Auto) 0.2 10^3/uL (0.0-0.8) 07/03/24 20:10 Baso # (Auto) 0.1 10^3/uL (0.0-0.1) 07/03/24 20:10 Nucleated RBC % (auto) 0 % 07/03/24 20:10 Nucleated RBCs # 0.0 /100WBC 07/03/24 20:10 Blood Type B Positive 07/03/24 20:10 Rho(D) Type Rh positive 07/03/24 20:10 Antibody Screen Negative 07/03/24 20:10 Vitals Last Vital Signs Temp 97.9 F 07/05/24 08:49 Pulse 80 07/05/24 08:49 Resp 16 07/05/24 08:49 BP 110/71 07/05/24 08:49 Pulse Ox 97 07/05/24 08:49 O2 Del Method Room Air 07/05/24 08:49 Results Labs OB ([facility]): Obstetrics US 05/18/24 Blood Type B Positive 07/03/24 Antibody Screen Negative 07/03/24 Hct 29.5 % (36-47) L 07/05/24 Hgb 9.30 g/dL (11.27-16.99) L 07/05/24 Rho(D) Type Rh positive 07/03/24 Plt Count 238 10^3/cmm (157-399) 07/05/24 Hep Bs Antigen Non-reactive (Nonreactive) 01/08/24 Hepatitis C Antibody Non-reactive (Nonreactive) 01/08/24 Rubella IgG Antibody 309.7 IU/mL (0.0-10.0) H 01/08/24 RPR Nonreactive (Nonreactive) 01/08/24 HIV 1&2 Ab & HIV 1 Ag Non-reactive (Non-Reactiv) 01/08/24 TSH 0.88 uIU/mL (0.27-4.20) 01/08/24 C.trachomatis RNA (TMA) Not detected (NOT DETECTED) 01/08/24 N.gonorrhoeae RNA (TMA) Not detected (NOT DETECTED) 01/08/24 T. vaginalis Amp RNA Not detected (NOT DETECTED) 01/08/24 Chlamydia/GC Comment See note 01/08/24 Cystic Fibrosis Screen Negative 01/08/24 Glucose 1 Hr 50 gm 127 mg/dL (85-140) 04/15/24 Ser , Semi-Qnt 53609.00 mIU/mL 11/19/23 Urine Opiates Screen Negative ng/mL (Negative) 01/08/24 Ur Barbiturates Screen Negative ng/mL (Negative) 01/08/24 Ur Phencyclidine Scrn Negative ng/mL (Negative) 01/08/24 Ur Amphetamines Screen Negative ng/mL (Negative) 01/08/24 U Benzodiazepines Scrn Negative ng/mL (Negative) 01/08/24 Urine Cocaine Screen Negative ng/mL (Negative) 01/08/24 U Marijuana (THC) Screen Negative ng/mL (Negative) 01/08/24 Micro Urine Specimen 01/08/24 Pap Smear Interpret See note 01/20/24 Discharge Plan Discharge Patient Disposition: Home, Self-Care w Plan Readm Condition: Stable Prescriptions: No Action Classic 28 mg iron- 800 mcg tablet PO Discharge Orders: Discharge Order (Routine); Ordered 07/05/24 Ordered By: Jenae Avila Discharge Diet: Regular Discharge Activity: Increase activity as tolerated Patient Instructions: Opioid Safety Activity Restrictions/Additional Instructions: No heavy lifting, pushing or pulling. No sexual intercourse x 6 weeks. Assessment: 1. S/p viable female at 40.6 weeks gestation 2. Shoulder dystocia resolved (no injury) 3. GBS positive 4. Asymptomatic anemia 5. Desires elective sterilization in the future Plan of Treatment: Discharge patient to home Patient to call the clinic and schedule a 4 to 6-week visit. Discharge Attestations PHYSICAL THERAPIST CLINIC DIRECTOR Time Spent in Discharge Care*: less than 30 min Coding Level of Care Code Acute Code for Chg Fwd Diagnoses Spontaneous vaginal delivery O80 Shoulder dystocia, delivered O66.0 40 weeks gestation of Z3A.40 Encounter for consultation for female sterilization Z30.09 Positive GBS test B95.1
[2024-07-05 15:20] VITALS: BP 120/80; PULSE 100; RESP 16; TEMP 36.6; O2SAT 98
== END 2024-07-05 15:25 | disposition home or self-care (01) | DRG 807 ==
LOC: OPOB 20:22 → OBGYN 20:22
PROVIDERS: Admitting Provider Obstetrics & Gynecology; Visit Provider Obstetrics & Gynecology
DX: O99.824 Streptococcus B carrier state complicating childbirth (principal); Z37.0 Single live birth; O48.0 Post-term pregnancy; O66.0 Obstructed labor due to shoulder dystocia; O69.81X0 Labor and delivery complicated by cord around neck, without compression, not applicable or unspecified; Z3A.40 40 weeks gestation of pregnancy
CPT/HCPCS: 36415; 51702; 59025; 59409; 85025; 85027; 86850; 86900; 96374; J0290; J2405; J2590; J2765; J2795; J3010; J7120; J7121